=== PATIENT | female | born 1960 | race Caucasian/White ===

== ENCOUNTER 2024-05-10 04:45 | Inpatient (IN) | payer MEDICAID, OTHER ==
[~2024-05-10] VITALS: Ht 144.8 cm; Wt 89.9 kg
--- NOTE | 2024-05-10 05:42 | ED.PDOC ---
HPI Comments 63-year-old female came to emergency room via EMS due to chest pains. Patient has history of diabetes and breast cancer. Has been having intermittent episodes of chest pain since Monday, that worsened a few hours ago prompting her to go to [facility]. Diagnostics were done. Negative for troponin however was positive/ elevated for D Dimer levels. Patient transferred to this institution for further management. 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 Cardiac: (+) chest pain. No palpitations. Lungs: No shortness of breath, no cough. GI: No nausea, no vomiting, no diarrhea, no constipation, no abdominal pain : No dysuria, frequency, or urgency. No hematuria. Musculoskeletal: No joint pain , no joint swelling, no extremity edema. Skin: No rash, no itching. Neuro: No headache, no dizziness, no weakness Vital Signs Vital Signs Date Time Temp Pulse Resp B/P (MAP) Pulse Ox O2 Delivery O2 Flow Rate FiO2 05/10/24 05:42 61 05/10/24 04:57 98.2 18 144/87 (106) 98 Physical Exam General: Awake, alert and oriented. No acute distress. Skin: Skin in warm, dry and intact. Appropriate color for ethnicity. Nailbeds pink with no cyanosis. HEENT: The head is normocephalic and atraumatic. Conjunctivae are clear without exudates or hemorrhage. Sclera is non-icteric. EOM are intact. No signs of nystagmus. Eyelids are normal in appearance without swelling or lesions. Oral mucosa is pink and moist Neck: The neck is supple with normal range of motion. No JVD. Cardiac: Heart rate and rhythm are normal. No murmurs, gallops, or rubs are auscultated. Respiratory: No signs of respiratory distress. Lung sounds are clear in all lobes bilaterally without rales, ronchi, or wheezes. Abdominal: Abdomen is soft, non-tender without distention. Bowel sounds are present and normoactive in all four quadrants. Extremities: Upper and lower extremities are atraumatic in appearance without deformity or edema. Neurological: The patient is awake, alert and oriented to person, place, and time with normal speech. Speech is clear. There is no facial asymmetry. Psychiatric: Appropriate mood and affect. Good judgement and insight. No visual or auditory hallucinations. Past Medical History PAST MEDICAL HISTORY: Cancer (breast), DM Surgical History: , Hysterectomy MANAGER MEDIA History: Denies all MANAGER MEDIA Hx Family History Family History: Reviewed,noncontributory to illness Social History Smoker: Non-Smoker Alcohol: Denies ETOH Use Drugs: Denies Drug Use Lives In: Home EKG EKG : Pulse Rate (adult): 61 Cardiac Rhythm: NSR Was a procedure done? Was a procedure done?: No CP Differential Dx Differential Diagnosis: Angina, Anxiety / Panic Attack, Electrolyte Disorder, Hyperventilation, Pulmonary Embolus Differential Diagnosis: Angina, Chest Wall Pain, Costochondritis, Esophageal reflux/spasm, Gastritis, Myocardial Infarction X-Ray, Labs, Meds, VS Vital Signs Date Time Temp Pulse Resp B/P (MAP) Pulse Ox O2 Delivery O2 Flow Rate FiO2 05/10/24 05:42 61 05/10/24 04:57 98.2 58 18 144/87 (106) 98 05/10/24 04:46 61 Lab Test 05/10/24 05:31 Range/Units White Blood Count Pending Red Blood Count Pending Hemoglobin Pending Hematocrit Pending Mean Corpuscular Volume Pending Mean Corpuscular Hemoglobin Pending Mean Corpuscular Hemoglobin Concent Pending Red Cell Distribution Width Pending Platelet Count Pending Mean Platelet Volume Pending Neutrophils (%) (Auto) Pending Lymphocytes (%) (Auto) Pending Monocytes (%) (Auto) Pending Basophils (%) (Auto) Pending Neutrophils # (Auto) Pending Lymphocytes # (Auto) Pending Monocytes # (Auto) Pending Prothrombin Time Pending Prothrombin Time INR Pending Activated Partial Thromboplast Time Pending D-Dimer, Quantitative Pending Sodium Level Pending Potassium Level Pending Chloride Level Pending Carbon Dioxide Level Pending Anion Gap Pending Blood Urea Nitrogen Pending Creatinine Pending Glomerular Filtration Rate Calc Pending BUN/Creatinine Ratio Pending Serum Glucose Pending Calcium Level Pending Total Bilirubin Pending Aspartate Amino Transferase (AST) Pending Alanine Aminotransferase (ALT) Pending Alkaline Phosphatase Pending Troponin I High Sensitivity Pending B-Type Natriuretic Peptide Pending Total Protein Pending Albumin Pending Time of 1ST Reevaluation: 05:24 Reevaluation 1ST: Unchanged Patient Education/Counseling: Diagnosis, Treatment Family Education/Counseling: No Family Present Departure 1 Departure Time of Disposition: 05:52 Impression: Primary Impression: Chest pain Additional Impression: Elevated d-dimer Disposition: 09 ADMITTED INPATIENT Condition: Stable Comments 63-year-old female with history of breast cancer presents as a transfer from [place] with chest pain, elevated D-dimer. EKG and troponin negative for STEMI/NSTEMI. CT angiogram pending. Patient to be admitted for further treatment, evaluation and monitoring. Critical Care Note Critical Care Time?: Yes (35 min-critical care time only) Stability Stability form required: No Heart Score Heart Score: Heart Score Response (Comments) Value History Moderate Suspicious 1 EKG Normal 0 Age 45-64 1 Risk Factors 1 or 2 risk factors 1 Troponin Normal limit 0 Total 3 I personally scribed for NANCY ROTHMAN MD ([email or web address]) on 05/10/24 at 05:42. Meghana ctronically submitted by Mick Schwab ([facility]). NANCY ROTHMAN MD May 10, 2024 05:42
[2024-05-10 06:23] LABS: Alanine Aminotransferase 37 U/L (7-40); Albumin 4.5 g/dL (3.2-4.8); Alkaline Phosphatase 99 U/L (46-116); Anion Gap 7 (5-15); Aspartate Aminotransferase 28 U/L (13-40); BUN/Creatinine Ratio 14.8 (10.0-20.0); Blood Urea Nitrogen 12 mg/dL (9-23); Carbon Dioxide 26 mmol/L (20-31); Sodium 144 mmol/L (136-145); Total Protein 7.3 g/dL (5.7-8.2)
[2024-05-10 06:24] LABS: Bilirubin, Total 0.4 mg/dL (0.2-1.0); INR 1.03 (0.9-1.15); Partial Thromboplastin Time 23.7 SEC (24.5-34.5); Prothrombin Time 10.9 sec (9.3-11.8)
[2024-05-10 06:31] LABS: Chloride 111 mmol/L (98-107); Glucose 119 mg/dL (74-106)
--- NOTE | 2024-05-10 07:03 | ECG ---
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
--- NOTE | 2024-05-10 07:22 | ECG ---
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
--- NOTE | 2024-05-10 07:37 | DVHHP2 ---
History of Present Illness Reason for Visit: Chest pain History of Present Illness Steph Gardner is a 63-year-old female with past medical history of diabetes type 2, breast cancer, hysterectomy, , and right breast mass excision who presents to the ED with chest pain since Monday. Patient states that she was at work developed chest pain then went home to lie down. Patient states that the pain is currently 0/10 but at the time felt tight and was intermittent in nature. Patient states that she had a recent gum infection and was given antibiotics to take from hidradenitis in his still currently taking it plan for 10 days. Patient denies any shortness of breath, fever, chills, lightheadednes s, weakness, dizziness, recent trauma or injury, abdominal pain, nausea, vomiting, and diarrhea. Endocrine: Diabetes Past Medical History Breast cancer Past Surgical History: , Hysterectomy, Other (Right breast mass excision) Family History: Hypertension, Other (Mom with diabetes and hypertension and dad with diabetes) Smoke: No ALCOHOL: none Drugs: None Lives: Alone Domestic Violence: Neg Review of Systems Allergies: Coded Allergies: Mirabegron (Verified Allergy, Unknown, 05/10/24) Medications Current Medications Medications Dose Ordered Sig/Mona Route Start Time Stop Time Status Last Admin Dose Admin Aspirin 81 mg DAILY PO 05/10/24 10:00 UNV Atorvastatin Calcium 40 mg HS PO 05/10/24 22:00 UNV Morphine Sulfate 2 mg Q30MP PRN IV 05/10/24 07:45 UNV Acetaminophen 650 mg Q6HP PRN PO 05/10/24 07:45 UNV Nitroglycerin 0.4 mg Q5MINP PRN SL 05/10/24 07:45 UNV Ondansetron HCl 4 mg Q4HP PRN IV 05/10/24 07:45 UNV Nitroglycerin 0.4 mg Q5MINP PRN SL 05/10/24 07:45 UNV Morphine Sulfate 2 mg Q30M PRN IV 05/10/24 07:45 UNV Insulin Human Regular ACHS SC 05/10/24 11:30 UNV Dextrose 50 ml UD PRN IV 05/10/24 07:45 UNV Exam Vital Signs Vital Signs Date Time Temp Pulse Resp B/P (MAP) Pulse Ox O2 Delivery O2 Flow Rate FiO2 05/10/24 05:55 60 05/10/24 04:57 98.2 18 144/87 (790) 98 General Appearance: Alert, Oriented X3, Cooperative, No acute distress HEENT: Atraumatic, PERRLA, EOMI, Mucous membr. moist/pink Respiratory: Clear to auscultation, Normal air movement Cardiovascular: Normal S1, Normal S2, No murmurs Abdominal: Normal bowel sounds, Soft, No tenderness, No hepatospenomegaly, No masses Extremities: No clubbing, No cyanosis, No edema, Normal pulses, No tenderness/swelling Neuro: Normal speech, Normal tone, Sensation intact Psych/Mental Status: Mental status NL, Mood NL Labs/Xrays Labs Test 05/10/24 05:31 Range/Units Prothrombin Time 10.9 9.3-11.8 sec Prothrombin Time INR 1.03 0.9-1.15 Activated Partial Thromboplast Time 23.7 L 24.5-34.5 SEC D-Dimer, Quantitative 2.84 H 0.0-0.49 mg/L FEU Sodium Level 144 136-145 mmol/L Potassium Level 4.0 3.5-5.1 mmol/L Chloride Level 111 H 98-107 mmol/L Carbon Dioxide Level 26 20-31 mmol/L Anion Gap 7 5-15 Blood Urea Nitrogen 12 9-23 mg/dL Creatinine 0.81 0.550-1.02 mg/dL Glomerular Filtration Rate Calc 83 >90 mL/min BUN/Creatinine Ratio 14.8 10.0-20.0 Serum Glucose 119 H 74-106 mg/dL Calcium Level 10.0 8.7-10.4 mg/dL Total Bilirubin 0.4 0.2-1.0 mg/dL Aspartate Amino Transferase (AST) 28 13-40 U/L Alanine Aminotransferase (ALT) 37 7-40 U/L Alkaline Phosphatase 99 46-116 U/L Troponin I High Sensitivity 9 </=34 ng/L B-Type Natriuretic Peptide 39.94 0-100 pg/mL Total Protein 7.3 5.7-8.2 g/dL Albumin 4.5 3.2-4.8 g/dL CT CT ANGIO CHEST CONTRAST INDICATION: CP, elevated D-dimer, Hx Breast Ca EXAM DATE: 05/10/2024 07:18 AM COMPARISON: None RADIATION DOSE: CTDIvol: 25.41 mGy, DLP: 876.5 mGy*cm PROCEDURE: Helical CT angiographic images were obtained of the chest with intravenous contrast. Sagittal and coronal reconstructions as well as MIPS are provided. Maximum intensity projections performed (MIPs) were performed for CTA. ADDITIONAL IMAGES / REFORMATS: None All CT scans at this medical facility are performed using dose modulation techniques as appropriate to a performed exam including the following: Automated exposure control was utilized; adjustment of the MA and/or KV according to patient size; and use of iterative reconstruction technique. FINDINGS: Bones: Scattered degenerative changes are noted in the visualized osseous structures. Visualized Abdomen: Gallstones are seen in the gallbladder. Chest Wall: Normal. Soft tissues: Right breast skin thickening Mediastinum: Normal. Heart: Enlarged Vessels: No filling defects in the visualized pulmonary arteries including the segmental and subsegmental pulmonary arteries. Lymph Nodes: Normal. Pleura: Normal. Airways: Normal. Lung: Mild bibasilar atelectasis. Other: None IMPRESSION: No pulmonary embolism in the visualized pulmonary arteries including the seg mental and subsegmental pulmonary arteries. Mild bibasilar atelectasis. EXAM: XY CHEST XRAY 1 VIEW Indication: cp Technique: Single frontal view of the chest was obtained Comparison: None FINDINGS: Lines and Tubes: None Lungs: No focal consolidation. Pleura: No effusion. No pneumothorax. Cardiomediastinal contours: Unremarkable Bones: No acute osseous abnormality. IMPRESSION: No acute cardiopulmonary disease. Assessment/Plan Assessment/Plan Assessment Chest pain Elevated D-dimer rule out PE History of diabetes type 2 History of breast cancer History of hysterectomy History of History of right breast mass excision Plan Admit to tele CTA chest Troponin negative BNP PT/PTT EKG UA Chest x-ray ordered Hemoglobin A1c ISS and Accu-Cheks Mag level Echo ordered TSH Lipid panel UDS ACS protocol Antiemetics Pain management Home medications reconciled Diet Discussed plan of care with patient and nurse Plan discussed with: Patient My Orders Orders - DARRYL WALKER Procedure Category Date Status Time Admit ADMIT 05/10/24 Transmitted 07:32 Code Status CODE 05/10/24 Transmitted 07:32 Vital Signs EUGENIE 05/10/24 In Process 07:32 Gravel 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 EUGENIE 05/10/24 In Process 07:32 Cardiac DIET 05/10/24 Transmitted Diet-2gna,Lofat,Lochol Breakfast Aspirin Tablet PHA 05/10/24 Logged 10:00 Atorvastatin (Lipitor) PHA 05/10/24 Logged 22:00 Morphine Sulfate PHA 05/10/24 Logged Injection 07:45 Acetaminophen Tablet PHA 05/10/24 Logged (Tylenol Tablet) 07:45 Basic Metabolic Panel LAB 05/11/24 Verified 04:00 Comprehensive LAB 05/11/24 Verified Metabolic Panel 04:00 Magnesium LAB 05/11/24 Verified 04:00 Echo 2d Mode Cardiac US 05/10/24 Logged DOP 07:32 Nitroglycerin PHA 05/10/24 Logged Sublingual (Ntrostat 07:45 Ondansetron Hcl PHA 05/10/24 Logged (Zofran) 07:45 Electrocardigram EKG 05/11/24 Logged 04:00 Troponin-I Hs LAB 05/10/24 Transmitted 07:32 Cardiac EUGENIE 05/10/24 In Process Rehabilitation - Outpa Nitroglycerin PHA 05/10/24 Logged Sublingual (Ntrostat 07:45 Morphine Sulfate PHA 05/10/24 Logged Injection 07:45 Stat Ekg For Chest EUGENIE 05/10/24 In Process Pain 07:32 Notify Md Of Changes [facility] 05/10/24 In Process From Base 07:32 International Affairs Vice President For [facility] 05/10/24 In Process 24 Hours 07:32 Emergency Dysrhythmia [facility] 05/10/24 In Process Protocol 07:32 Rhythm Strips Once [facility] 05/10/24 In Process Every Shift 07:32 Oxygen By Nasal RT 05/10/24 Transmitted Cannula 07:32 Drug Screen LAB 05/10/24 Transmitted 07:32 Lipid Panel LAB 05/10/24 Transmitted 07:32 Glucose Blood PHA 05/10/24 Transmitted (Accu-Chek Comfort 11:30 Insulin R (Human) PHA 05/10/24 Logged (Insulin R) 11:30 Dextrose 50% Syringe PHA 05/10/24 Logged 07:45 Thyroid Stimulating LAB 05/10/24 Transmitted Hormone 07:32 Hemoglobin A1c LAB 05/10/24 Transmitted 07:35 Date of Service: May 10, 2024 Billing Provider: DARRYL WALKER Common Visit Codes: [id number] INP/OBS CARE (HIGH) DARRYL WALKER May 10, 2024 07:37
[2024-05-10 07:41] LABS: Basophils # (auto) 0 10 ^3/uL (0-0.2); Basophils % (auto) 0.6 % (0.0-2.0); Eosinophils # (auto) 0.1 10 ^3/uL (0-0.8); Eosinophils % (auto) 3.3 % (0.0-7.0); Hematocrit 38.5 % (36.0-46.0); Hemoglobin 12.6 g/dL (12.2-16.2); Lymphocytes # (auto) 1.2 10 ^3/uL (0.4-5.4); Lymphocytes % (auto) 29.5 % (10.0-50.0); Mean Corpuscular Hemoglobin 30.1 pg (28.0-32.0); Mean Corpuscular Hgb Conc. 32.7 g/dL (32.0-36.0); Monocytes # (auto) 0.5 10 ^3/uL (0-1.3); Monocytes % (auto) 11.5 % (0.0-12.0); Neutrophils # (auto) 2.3 10 ^3/uL (1.6-8.6); Neutrophils % (auto) 55.1 % (37.0-80.0); Nucleated Red Blood Cells % 0.2 %; Platelet Count (auto) 182 10^3/uL (140-450); Red Blood Cells 4.18 10^6/uL (4.0-5.20); Red Cell Distribution Width 14.2 % (11.8-14.3); White Blood Cell 4.1 10^3/uL (4.4-10.8)
[2024-05-10] MEDS ORDERED: DEXTROSE (50%) 50ML SYRG IV PRN (07:45)
[2024-05-10] MEDS ORDERED: ONDANSETRON HCL 4 MG/2 ML VIAL IV PRN (07:45)
[2024-05-10] MEDS ORDERED: MORPHINE SULFATE 4 MG/ML SYR/VIAL IV PRN (07:45)
[2024-05-10] MEDS ORDERED: NITROGLYCERIN 0.4 MG SL TAB SL PRN ×2 (07:45)
[2024-05-10] MEDS ORDERED: MORPHINE SULFATE INJ 2 MG/ml SYRG IV PRN (07:45)
[2024-05-10] MEDS: IOHEXOL 350 MG/ML 100ML IJ ONE (07:55)
--- NOTE | 2024-05-10 08:11 | DVH ---
EXAM: XY CHEST XRAY 1 VIEW Indication: cp Technique: Single frontal view of the chest was obtained Comparison: None FINDINGS: Lines and Tubes: None Lungs: No focal consolidation. Pleura: No effusion. No pneumothorax. Cardiomediastinal contours: Unremarkable Bones: No acute osseous abnormality. IMPRESSION: No acute cardiopulmonary disease.
[2024-05-10 08:12] LABS: Triglycerides 144 mg/dL (< 150)
[2024-05-10 08:13] LABS: LDL Cholesterol 85 mg/dL (< 100)
[2024-05-10 08:14] LABS: Cholesterol 130 mg/dL (< 200)
[2024-05-10 08:15] LABS: HDL Cholesterol 26 mg/dL (40-59)
--- NOTE | 2024-05-10 08:24 | DVH ---
CT CT ANGIO CHEST CONTRAST INDICATION: CP, elevated D-dimer, Hx Breast Ca EXAM DATE: 05/10/2024 07:18 AM COMPARISON: None RADIATION DOSE: CTDIvol: 25.41 mGy, DLP: 876.5 mGy*cm PROCEDURE: Helical CT angiographic images were obtained of the chest with intravenous contrast. Sagi ttal and coronal reconstructions as well as MIPS are provided. Maximum intensity projections performe d (MIPs) were performed for CTA. ADDITIONAL IMAGES / REFORMATS: None All CT scans at this medical facility are performed using dose modulation techniques as appropriate t o a performed exam including the following: Automated exposure control was utilized; adjustment of th e MA and/or KV according to patient size; and use of iterative reconstruction technique. FINDINGS: Bones: Scattered degenerative changes are noted in the visualized osseous structures. Visualized Abdomen: Gallstones are seen in the gallbladder. Chest Wall: Normal. Soft tissues: Right breast skin thickening Mediastinum: Normal. Heart: Enlarged Vessels: No filling defects in the visualized pulmonary arteries including the segmental and subsegme ntal pulmonary arteries. Lymph Nodes: Normal. Pleura: Normal. Airways: Normal. Lung: Mild bibasilar atelectasis. Other: None IMPRESSION: No pulmonary embolism in the visualized pulmonary arteries including the segmental and subsegmental p ulmonary arteries. Mild bibasilar atelectasis.
[2024-05-10] MEDS: ASPirin 81 mg TAB PO SCH (10:18)
[2024-05-10 11:22] VITALS: PULSE 84; RESP 20; O2SAT 96
[2024-05-10] MEDS: ACCU-CHEK COMFORT CURVE STRIP VI SCH (11:47)
[2024-05-10] MEDS: InsuLIN REG 1unit/0.01ml Soln (100units/ml) SC SCH (11:53)
[2024-05-10] MEDS ORDERED: ANAS1TAB7 PO (17:24)
[2024-05-10] MEDS ORDERED: FENO160T PO (17:24)
[2024-05-10] MEDS ORDERED: ATOR20TA50 PO (17:24)
[2024-05-10] MEDS ORDERED: AMOX500C2 PO (17:24)
[2024-05-10] MEDS ORDERED: MAGN241.6 PO (17:24)
[2024-05-10] MEDS ORDERED: OMEG-86 PO (17:24)
[2024-05-10 20:03] VITALS: RESP 15; O2SAT 95
[2024-05-10 21:00] VITALS: BP 123/85; PULSE 65; RESP 19; TEMP 97.4; O2SAT 97
[2024-05-10] MEDS: ATORVASTATIN 20 MG TAB PO SCH (22:16)
[2024-05-10 22:29] VITALS: BP 123/85; PULSE 65; RESP 19; TEMP 97.5; O2SAT 97
[2024-05-11] VITALS (8 sets, daily range): BP systolic 119–148; BP diastolic 58–74; PULSE 61–69; RESP 16–20; TEMP 97.6–98.3; O2SAT 96–99
[2024-05-11] LABS: Amphetamine Screen, Urine Neg (NEGATIVE); Barbiturate Scree,Urine Neg (NEGATIVE); Benzodiazephine Screen, Urine Neg (NEGATIVE); Cannabinoid Screen, Urine Neg (NEGATIVE); Cocaine Screen, Urine Neg (NEGATIVE); Opiate Scree,Urine Neg (NEGATIVE); Phencyclidine Screen, Urine Neg (NEGATIVE)
[2024-05-11 06:28] LABS: Alanine Aminotransferase 34 U/L (7-40); Albumin 4.1 g/dL (3.2-4.8); Alkaline Phosphatase 77 U/L (46-116); Anion Gap 6 (5-15); Aspartate Aminotransferase 24 U/L (13-40); BUN/Creatinine Ratio 19.8 (10.0-20.0); Bilirubin, Total 0.4 mg/dL (0.2-1.0); Blood Urea Nitrogen 16 mg/dL (9-23); Calcium 9.6 mg/dL (8.7-10.4); Carbon Dioxide 27 mmol/L (20-31); Sodium 142 mmol/L (136-145); Total Protein 6.6 g/dL (5.7-8.2)
[2024-05-11 06:31] LABS: Chloride 109 mmol/L (98-107); Glucose 133 mg/dL (74-106)
[2024-05-11] MEDS: IBUPROFEN 400 MG TAB PO PRN (12:02)
--- NOTE | 2024-05-11 12:33 | DVHSR ---
APPROVED REPORT EXAM: Two-dimensional and M-mode echocardiogram with Doppler and color Doppler. Blood Pressure: 145/70 mmHg INDICATION Chest Pain RISK FACTORS Height: 4'9", Weight: 195 DIMENSIONS LVDd3.9 (3.8-5.7cm)LA (2D)3.9 (1.9-4.0cm)Aortic Root3.4 (2.0-3.7cm) LVDs2.5 (2.5-4.0cm)LA (MM) (1.9-4.0cm)Aortic Cusp Exc1.4 (1.5-2.0cm) EF (%) 66.0 (55-70%)Rt. Atrium4.6 (1.9-4.0cm)Asc. Aorta cm IVSd1.4 (0.7-1.1cm)RV (D)4.1 (1.8-2.4cm) PWd1.4 (0.7-1.1cm) Mitral Valve MitralMitral Stenosis E wave0.94m/sMV Mean GR.mmHg A wave1.04m/sMV Peak GR.mmHg E/A ratio0.92D MVAcm2 DECEL [id number] 1/2 Timems Aortic Valve Aortic ValveAortic Stenosis V11.21m/Aleisha Mean GR.4mmHg V21.46m/Aleisha Peak GR.9mmHg LVOT Diameter1.8 (1.8-2.4cm)Doppler AVA2.11cm2 Pulmonic Valve V20.92m/s Tricuspid Valve TR Velocity2.19m/s [id number] Other Information Technically limited study due to body habitus. Conclusion lvef 60% by visual estimate normal rv function but enlarged left atrium enlarged no severe valve abnormalities noted normal pericardium
--- NOTE | 2024-05-11 13:38 | DVHPN2 ---
Reviewed: Care Plan, H&P, Labs, Medications, Previous Orders, Radiology Changes from previous H/P or p: No Changes Objective Vitals Vital Signs Date Time Temp Pulse Resp B/P (MAP) Pulse Ox O2 Delivery O2 Flow Rate FiO2 05/11/24 08:18 97.8 68 19 128/64 (85) 98 97.8 05/10/24 22:29 Room Air* 0 21 Intake/Output Intake and Output 05/11/24 07:00 Output Total 300 ml Balance -300 ml Output Urine Total 300 ml Medications Current Medications Medications Dose Ordered Sig/Mona Route Start Time Stop Time Status Last Admin Dose Admin Aspirin 81 mg DAILY PO 05/10/24 10:00 05/11/24 09:35 81 MG Atorvastatin Calcium 40 mg HS PO 05/10/24 22:00 05/10/24 22:16 40 MG Acetaminophen 650 mg Q6HP PRN PO 05/10/24 07:45 Ondansetron HCl 4 mg Q4HP PRN IV 05/10/24 07:45 Nitroglycerin 0.4 mg Q5MINP PRN SL 05/10/24 07:45 Morphine Sulfate 2 mg Q30M PRN IV 05/10/24 07:45 Diagnostic Test (Pha) 1 strip ACHS 05/10/24 11:30 05/11/24 11:30 1 STRIP Insulin Human Regular ACHS SC 05/10/24 11:30 05/11/24 05:26 2 UNITS Dextrose 50 ml UD PRN IV 05/10/24 07:45 Ibuprofen 400 mg Q8HP PRN PO 05/11/24 11:15 05/11/24 12:02 400 MG Laboratory Results Laboratory Tests 05/10/24 05:31 05/11/24 05:11 Chemistry Test 05/11/24 05:11 Albumin 4.1 g/dL (3.2-4.8) Calcium Level 9.6 mg/dL (8.7-10.4) Magnesium Level 2.0 mg/dL (1.6-2.6) Total Protein 6.6 g/dL (5.7-8.2) LFT Test 05/11/24 05:11 Alanine Aminotransferase (ALT) 34 U/L (7-40) Alkaline Phosphatase 77 U/L (46-116) Aspartate Amino Transferase (AST) 24 U/L (13-40) Total Bilirubin 0.4 mg/dL (0.2-1.0) Labs and/or images reviewed: Labs reviewed by me, Image(s) reviewed by me Assessment/Plan Assessment/Plan Chest pain rule out coronary artery disease: Troponin negative x3: Consult for sustainability manager Dr. Jose Elevated D-dimer 2.8, PE ruled out Diabetes type 2 History of breast cancer status post excision of the mass History of hysterectomy Time Spent 40 minutes Epigastric pain rule out GERD: Consult for Dr. Mckay Plan discussed with: Patient My Orders Orders - JOAQUIN RODRIGUEZ MD Procedure Category Date Status Time Ibuprofen Tablet PHA 05/11/24 In Process (Motrin Tablet) 11:15 * Cardiology Consult CONS 05/11/24 Verified 13:33 Date of Service: May 11, 2024 Billing Provider: JOAQUIN RODRIGUEZ MD Common Visit Codes: [id number] INP/OBS CARE(HIGH) JOAQUIN RODRIGUEZ MD May 11, 2024 13:38
--- NOTE | 2024-05-11 16:25 | DVHINCON2 ---
Date of service: May 11, 2024 Referring Physician Alen Salomon Reason for Consultation Rule out GERD History of Present Illness The patient is a 64-year-old female with history of hypertension, diabetes, history of breast cancer status post right breast excision, admitted with chest pain, GI consultation obtained for GERD. Patient states that the chest pain is in the mid chest and does not radiate. It is not related to eating. She states that the pain is made worse with exertion and associated with shortness of breath and occasional diaphoresis. She denies any history of dysphagia or prior history of EGD. Patient denies food impaction. She states that the pain comes with exertion and goes away with rest. Past Medical History As above Past Surgical History Breast cancer Cholecystectomy Hysterectomy Family History: Alzheimer's disease G8 MOTHER Cerebrovascular accident (CVA) G8 MOTHER Diabetes mellitus G8 MOTHER G8 FATHER Family History No gastrointestinal diseases or malignancies Social History No significant tobacco alcohol or recreational drug use Allergies: Coded Allergies: Mirabegron (Verified Allergy, Unknown, 05/10/24) Home Meds Reported Medications Fenofibrate (Fenofibrate) 160 Mg Tab, 1 TAB PO DAILY 05/10/24 Uwbdq-5-Sgfe Ethyl Esters (Tcupm-2-Pwxb Ethyl Esters) 1 Gm Cap, 1 CAP PO BID 05/10/24 Amoxicillin Trihydrate (Amoxicillin) 500 Mg Cap, 1 CAP PO BID day 7 05/10/24 Magnesium Oxide (mg Supplement (Magnesium-Oxide) 400 Mg Tab, 1 TAB PO DAILY 05/10/24 Atorvastatin Calcium (ATORVASTATIN CALCIUM) 20 Mg Tab, 1 TAB PO DAILY 05/10/24 Anastrozole (Anastrozole) 1 Mg Tab, 1 TAB PO DAILY 05/10/24 Current Medications Current Medications Medications (Trade) Dose Ordered Sig/Mona Route PRN Reason Start Time Stop Time Status Last Admin Atorvastatin Calcium (Lipitor) 40 mg HS PO 05/10/24 22:00 05/10/24 22:16 Ibuprofen (Motrin Tablet) 400 mg Q8HP PRN PO MODERATE PAIN (4-6 PAIN SCALE) 05/11/24 11:15 05/11/24 12:02 Review of Systems 12 point review of systems as per HPI Patient recently had hidradenitis for which he took antibiotic Vital Signs Vital Signs Date Time Temp Pulse Resp B/P (MAP) Pulse Ox O2 Delivery O2 Flow Rate FiO2 05/11/24 13:00 97.9 62 16 132/74 (93) 99 97.9 05/10/24 22:29 Room Air* 0 21 Physical Exam General: Alert and oriented x4 no distress HEENT: Normocephalic atraumatic, EOMI, PERRLA, O/P clear, no JVD Heart: Regular rate and rhythm Abdomen: Soft nontender nondistended normoactive bowel sounds Neuro: Moves all four extremities, cranial nerves grossly intact Extremity: No rashes or bruises or edema Labs/Diagnostic Data Labs Test 05/11/24 12:03 05/11/24 05:11 05/10/24 21:00 05/10/24 08:02 Range/Units POC Glucose 104 70-106 mg/dl Sodium Level 142 136-145 mmol/L Potassium Level 4.0 3.5-5.1 mmol/L Chloride Level 109 H 98-107 mmol/L Carbon Dioxide Level 27 20-31 mmol/L Anion Gap 6 5-15 Blood Urea Nitrogen 16 9-23 mg/dL Creatinine 0.81 0.550-1.02 mg/dL Glomerular Filtration Rate Calc 82 >90 mL/min BUN/Creatinine Ratio 19.8 10.0-20.0 Serum Glucose 133 H 74-106 mg/dL Calcium Level 9.6 8.7-10.4 mg/dL Magnesium Level 2.0 1.6-2.6 mg/dL Total Bilirubin 0.4 0.2-1.0 mg/dL Aspartate Amino Transferase (AST) 24 13-40 U/L Alanine Aminotransferase (ALT) 34 7-40 U/L Alkaline Phosphatase 77 46-116 U/L Total Protein 6.6 5.7-8.2 g/dL Albumin 4.1 3.2-4.8 g/dL Urine Opiates Screen Neg NEGATIVE Urine Fentanyl Screen Neg NEGATIVE Urine Barbiturates Screen Neg NEGATIVE Urine Phencyclidine Screen Neg NEGATIVE Urine Amphetamines Screen Neg NEGATIVE Urine Benzodiazepines Screen Neg NEGATIVE Urine Cocaine Screen Neg NEGATIVE Urine Cannabinoids Screen Neg NEGATIVE Troponin I High Sensitivity 9 </=34 ng/L Test 05/10/24 05:31 Range/Units White Blood Count 4.1 L 4.4-10.8 10^3/uL Red Blood Count 4.18 4.0-5.20 10^6/uL Hemoglobin 12.6 12.2-16.2 g/dL Hematocrit 38.5 36.0-46.0 % Mean Corpuscular Volume 92.0 80.0-100.0 fL Mean Corpuscular Hemoglobin 30.1 28.0-32.0 pg Mean Corpuscular Hemoglobin Concent 32.7 32.0-36.0 g/dL Red Cell Distribution Width 14.2 11.8-14.3 % Platelet Count 182 140-450 10^3/uL Mean Platelet Volume 11.7 H 6.9-10.8 fL Neutrophils (%) (Auto) 55.1 37.0-80.0 % Lymphocytes (%) (Auto) 29.5 10.0-50.0 % Monocytes (%) (Auto) 11.5 0.0-12.0 % Eosinophils (%) (Auto) 3.3 0.0-7.0 % Basophils (%) (Auto) 0.6 0.0-2.0 % Neutrophils # (Auto) 2.3 1.6-8.6 10 ^3/uL Lymphocytes # (Auto) 1.2 0.4-5.4 10 ^3/uL Monocytes # (Auto) 0.5 0-1.3 10 ^3/uL Eosinophils # (Auto) 0.1 0-0.8 10 ^3/uL Basophils # (Auto) 0 0-0.2 10 ^3/uL Nucleated Red Blood Cells 0.2 % Prothrombin Time 10.9 9.3-11.8 sec Prothrombin Time INR 1.03 0.9-1.15 Activated Partial Thromboplast Time 23.7 L 24.5-34.5 SEC D-Dimer, Quantitative 2.84 H 0.0-0.49 mg/L FEU Hemoglobin A1c 6.7 H <5.7 % A1C B-Type Natriuretic Peptide 39.94 0-100 pg/mL Triglycerides Level 144 < 150 mg/dL Cholesterol Level 130 < 200 mg/dL LDL Cholesterol 85 < 100 mg/dL HDL Cholesterol 26 L 40-59 mg/dL Thyroid Stimulating Hormone (TSH) 5.37 H 0.55-4.78 uIU/mL Assessment 1. Chest pain Symptoms atypical for GERD, consider noncardiac chest pain if cardiac workup is negative. She has left atrial enlargement and LVH on echo with an EF of 60%. Differentiated group diagnosis includes esophageal ulcer or esophageal spasm Problems(with codes): (1) Chest pain (2) Elevated d-dimer Plan/Recommendation 1. Continue with cardiac workup 2. Start proton pump inhibitor twice daily 3. Avoid spicy food 4. Caution with aspirin, NSAIDs 5. Consider EGD if cardiac workup is negative Plan discussed with: Patient CARMEN CHAMBERLAIN MD May 11, 2024 16:25
[2024-05-11] MEDS ORDERED: PANTOPRAZOLE 40 MG TAB PO PRN (16:30)
[2024-05-12] VITALS (8 sets, daily range): BP systolic 113–188; BP diastolic 47–81; PULSE 60–80; RESP 16–18; TEMP 97.6–98.4; O2SAT 96–98
--- NOTE | 2024-05-12 08:40 | DVHINCON2 ---
TEQUILA DENTON [facility] 05/12/24 0840: Date Seen: May 12, 2024 Referring Physician MD Aime Reason for Consultation Chest pain History of Present Illness This is a 64-year-old female patient who presents to emergency room with chief complaint of chest pain. The patient reports that the chest pain has been intermittently coming on for approximately one month but became so intense on the day of admission which is why she decided to come to the emergency room. She describes the chest pain as provoked by exertion, intermittent, tight in n ature, midsternal with radiation to right inframammary area. Associated symptoms include shortness of breath. Alleviating factors include rest. Initial twelve lead electrocardiogram reveals normal sinus rhythm with nonspecific ST segment changes to lateral leads. Troponin levels have been negative. Significant past medical history includes hypertension, dyslipidemia, type 2 diabetes mellitus, breast cancer status post chemotherapy and radiation, and obesity. The patient reports she has been in remission from breast cancer since April 2023. Past Medical History Past medical history reviewed. No other significant than mentioned above. Past Surgical History Right breast lumpectomy, x2, hysterectomy Family History: Alzheimer's disease G8 MOTHER Cerebrovascular accident (CVA) G8 MOTHER Diabetes mellitus G8 MOTHER G8 FATHER Family History Family history reviewed. Social History Denies the use of tobacco, alcohol or illicit drugs. Allergies: Coded Allergies: Mirabegron (Verified Allergy, Unknown, 05/10/24) Home Meds Reported Medications Fenofibrate (Fenofibrate) 160 Mg Tab, 1 TAB PO DAILY 05/10/24 Ovaqo-4-Uqvv Ethyl Esters (Mkxnb-5-Wfzz Ethyl Esters) 1 Gm Cap, 1 CAP PO BID 05/10/24 Amoxicillin Trihydrate (Amoxicillin) 500 Mg Cap, 1 CAP PO BID day 7 05/10/24 Magnesium Oxide (mg Supplement (Magnesium-Oxide) 400 Mg Tab, 1 TAB PO DAILY 05/10/24 Atorvastatin Calcium (ATORVASTATIN CALCIUM) 20 Mg Tab, 1 TAB PO DAILY 05/10/24 Anastrozole (Anastrozole) 1 Mg Tab, 1 TAB PO DAILY 05/10/24 Home Meds Home medications reviewed. Current Medications Current Medications Medications (Trade) Dose Ordered Sig/Mona Route PRN Reason Start Time Stop Time Status Last Admin Ibuprofen (Motrin Tablet) 400 mg Q8HP PRN PO MODERATE PAIN (4-6 PAIN SCALE) 05/11/24 11:15 05/11/24 12:02 Pantoprazole Sodium (Protonix Tablet) 40 mg BID@0600,1700 PRN PO gerd 05/11/24 16:30 Patient Own Medication 1 HS PO 05/12/24 22:00 Review of Systems Constitutional: No symptom reported Ears, Nose, & Throat: No symptom reported Eyes: No symptom reported Neurological: No symptoms reported Pulmonary/Respiratory: No symptoms reported Cardiovascular: Chest pain Gastrointestinal: No symptom reported Genitourinary: No symptom reported Musculoskeletal: No symptom reported Skin: No symptom reported Psychiatric: No symptom reported Endocrine: No symptom reported Hematologic/Lymphatic: No symptom reported Vital Signs Vital Signs Date Time Temp Pulse Resp B/P (MAP) Pulse Ox O2 Delivery O2 Flow Rate FiO2 05/12/24 05:00 97.8 80 18 118/58 (78) 96 97.8 05/11/24 20:00 Room Air* 0 21 Physical Exam General Appearance: Cooperative. Obese Pulmonary/Respiratory: Clear, bilateral breaths sounds. Cardiovascular/Chest: Regular rate and rhythm. Peripheral Pulses: 2+ Radial (R). 2+ Radial (L). 2+ Pedal (R). 2+ Pedal (L) Abdominal Exam: Normal bowel sounds. Ankle Exam: Negative ankle edema Lower extremities: Negative lower extremity edema Neuro/Mental Status: A/OX4, coherent. Thoughts/Psych: Normal thought pattern. Appropriate mood and affect. Good judgment and insight. Appearance: No acute distress. Skin Exam: Normal inspection. Normal color. Warm and dry. Labs/Diagnostic Data Labs Test 05/12/24 05:51 05/11/24 05:11 05/10/24 21:00 05/10/24 08:02 Range/Units POC Glucose 134 H 70-106 mg/dl Sodium Level 142 136-145 mmol/L Potassium Level 4.0 3.5-5.1 mmol/L Chloride Level 109 H 98-107 mmol/L Carbon Dioxide Level 27 20-31 mmol/L Anion Gap 6 5-15 Blood Urea Nitrogen 16 9-23 mg/dL Creatinine 0.81 0.550-1.02 mg/dL Glomerular Filtration Rate Calc 82 >90 mL/min BUN/Creatinine Ratio 19.8 10.0-20.0 Serum Glucose 133 H 74-106 mg/dL Calcium Level 9.6 8.7-10.4 mg/dL Magnesium Level 2.0 1.6-2.6 mg/dL Total Bilirubin 0.4 0.2-1.0 mg/dL Aspartate Amino Transferase (AST) 24 13-40 U/L Alanine Aminotransferase (ALT) 34 7-40 U/L Alkaline Phosphatase 77 46-116 U/L Total Protein 6.6 5.7-8.2 g/dL Albumin 4.1 3.2-4.8 g/dL Urine Opiates Screen Neg NEGATIVE Urine Fentanyl Screen Neg NEGATIVE Urine Barbiturates Screen Neg NEGATIVE Urine Phencyclidine Screen Neg NEGATIVE Urine Amphetamines Screen Neg NEGATIVE Urine Benzodiazepines Screen Neg NEGATIVE Urine Cocaine Screen Neg NEGATIVE Urine Cannabinoids Screen Neg NEGATIVE Troponin I High Sensitivity 9 </=34 ng/L Test 05/10/24 05:31 Range/Units White Blood Count 4.1 L 4.4-10.8 10^3/uL Red Blood Count 4.18 4.0-5.20 10^6/uL Hemoglobin 12.6 12.2-16.2 g/dL Hematocrit 38.5 36.0-46.0 % Mean Corpuscular Volume 92.0 80.0-100.0 fL Mean Corpuscular Hemoglobin 30.1 28.0-32.0 pg Mean Corpuscular Hemoglobin Concent 32.7 32.0-36.0 g/dL Red Cell Distribution Width 14.2 11.8-14.3 % Platelet Count 182 140-450 10^3/uL Mean Platelet Volume 11.7 H 6.9-10.8 fL Neutrophils (%) (Auto) 55.1 37.0-80.0 % Lymphocytes (%) (Auto) 29.5 10.0-50.0 % Monocytes (%) (Auto) 11.5 0.0-12.0 % Eosinophils (%) (Auto) 3.3 0.0-7.0 % Basophils (%) (Auto) 0.6 0.0-2.0 % Neutrophils # (Auto) 2.3 1.6-8.6 10 ^3/uL Lymphocytes # (Auto) 1.2 0.4-5.4 10 ^3/uL Monocytes # (Auto) 0.5 0-1.3 10 ^3/uL Eosinophils # (Auto) 0.1 0-0.8 10 ^3/uL Basophils # (Auto) 0 0-0.2 10 ^3/uL Nucleated Red Blood Cells 0.2 % Prothrombin Time 10.9 9.3-11.8 sec Prothrombin Time INR 1.03 0.9-1.15 Activated Partial Thromboplast Time 23.7 L 24.5-34.5 SEC D-Dimer, Quantitative 2.84 H 0.0-0.49 mg/L FEU Hemoglobin A1c 6.7 H <5.7 % A1C B-Type Natriuretic Peptide 39.94 0-100 pg/mL Triglycerides Level 144 < 150 mg/dL Cholesterol Level 130 < 200 mg/dL LDL Cholesterol 85 < 100 mg/dL HDL Cholesterol 26 L 40-59 mg/dL Thyroid Stimulating Hormone (TSH) 5.37 H 0.55-4.78 uIU/mL Assessment Chest pain, rule out coronary ischemia Hypertension Dyslipidemia Type 2 diabetes mellitus History of breast cancer Obesity Plan/Recommendation We will continue with the following plan/recommendations (Dr. Alvarado): * Transthoracic echocardiogram reveals EF 60% * Chest pain protocol * HEART score: 4 points (moderate) * Blood pressure control and lipid-lowering agent * Continuous cardiac surveillance * Nuclear stress test Patient seen and examined at bedside with . Given the patient's clinical presentation, twelve lead electrocardiogram findings, and comorbidities, we offered the patient a nuclear stress test. Plan discussed with the patient full detail. Patient is agreeable to undergo stress test. We will schedule the patient first availability on 05/13/2024. Thank you for allowing us to care for this patient. Please call with any questions or concerns. Critical care time spent: 44 minutes This medical document was created using an electronic medical record system with voice recognition software and computerized dictation system. Although this document has been carefully reviewed, there might still be some phonetic and typographical errors. Occasional wrong-word or ``sound-alike substitutions may have occurred due to the inherent limitations of voice recognition software. These areas are purely typographical due to imperfections of the software programs and do not reflect any compromise in the patient's medical care. Please read the chart carefully and recognize, using context, where these substitutions have occurred. Plan discussed with: Patient NYHA Physical activity limitations: NA Date of Service: May 12, 2024 Billing Provider: TEQUILA DENTON Cardiology Common Codes: [id number] INP/OBS CARE (High) Cardiology Consultation Codes: [id number] CONSULT <45MIN JENN ALVARADO MD 05/13/24 0830: Family History: Alzheimer's disease G8 MOTHER Cerebrovascular accident (CVA) G8 MOTHER Diabetes mellitus G8 MOTHER G8 FATHER Allergies: Coded Allergies: Mirabegron (Verified Allergy, Unknown, 05/10/24) Home Meds Reported Medications Fenofibrate (Fenofibrate) 160 Mg Tab, 1 TAB PO DAILY 05/10/24 Sklzu-6-Gedp Ethyl Esters (Busgz-7-Sdib Ethyl Esters) 1 Gm Cap, 1 CAP PO BID 05/10/24 Amoxicillin Trihydrate (Amoxicillin) 500 Mg Cap, 1 CAP PO BID day 05/10/24 Magnesium Oxide (mg Supplement (Magnesium-Oxide) 400 Mg Tab, 1 TAB PO DAILY 05/10/24 Atorvastatin Calcium (ATORVASTATIN CALCIUM) 20 Mg Tab, 1 TAB PO DAILY 05/10/24 Anastrozole (Anastrozole) 1 Mg Tab, 1 TAB PO DAILY 05/10/24 Plan/Recommendation pt seen with OCCUPATIONAL THERAPY PROGRAM DIRECTOR and agree with management plan formulated together stress mpi given risk factors pt agree to plan TEQUILA DENTON May 12, 2024 08:40 JENN ALVARADO MD May 13, 2024 08:30
--- NOTE | 2024-05-12 10:23 | DVHPN2 ---
Reviewed: Care Plan, H&P, Labs, Medications, Previous Orders, Radiology Changes from previous H/P or p: No Changes Objective Vitals Vital Signs Date Time Temp Pulse Resp B/P (MAP) Pulse Ox O2 Delivery O2 Flow Rate FiO2 05/12/24 08:30 98.4 75 16 188/81 (116) 97 98.4 05/11/24 20:00 Room Air* 0 21 Intake/Output Intake and Output 05/12/24 07:00 Intake Total 1550 ml Output Total 800 ml Balance 750 ml Intake Oral 1550 ml Output Urine Total 800 ml # Voids 4 # Bowel Movements 2 Medications Current Medications Medications Dose Ordered Sig/Mona Route Start Time Stop Time Status Last Admin Dose Admin Aspirin 81 mg DAILY PO 05/10/24 10:00 05/11/24 09:35 81 MG Atorvastatin Calcium 40 mg HS PO 05/10/24 22:00 05/11/24 21:48 40 MG Acetaminophen 650 mg Q6HP PRN PO 05/10/24 07:45 Ondansetron HCl 4 mg Q4HP PRN IV 05/10/24 07:45 Nitroglycerin 0.4 mg Q5MINP PRN SL 05/10/24 07:45 Morphine Sulfate 2 mg Q30M PRN IV 05/10/24 07:45 Diagnostic Test (Pha) 1 strip ACHS 05/10/24 11:30 05/12/24 06:10 1 STRIP Insulin Human Regular ACHS SC 05/10/24 11:30 05/12/24 06:10 2 UNITS Dextrose 50 ml UD PRN IV 05/10/24 07:45 Ibuprofen 400 mg Q8HP PRN PO 05/11/24 11:15 05/11/24 12:02 400 MG Pantoprazole Sodium 40 mg BID@0600,1700 PRN PO 05/11/24 16:30 Patient Own Medication 1 HS PO 05/12/24 22:00 Laboratory Results Laboratory Tests 05/10/24 05:31 05/11/24 05:11 Labs and/or images reviewed: Labs reviewed by me, Image(s) reviewed by me Assessment/Plan Assessment/Plan Acute Chest pain rule out coronary artery disease: Troponin negative x3: Consult for senior lead software engineer Dr. Jose appreciated, patient getting Cardiolite stress test Monday Elevated D-dimer 2.8, PE ruled out Diabetes type 2 History of breast cancer status post lumpectomy History of hysterectomy Epigastric pain rule out GERD: Consult for Dr. Woody le, pantoprazole 40 mg IV b.i.d. Plan discussed with: Patient My Orders Orders - JOAQUIN RODRIGUEZ MD Procedure Category Date Status Time Ibuprofen Tablet PHA 05/11/24 In Process (Motrin Tablet) 11:15 * Cardiology Consult CONS 05/11/24 Transmitted 13:33 * [facility] Control And Recovery Special Tactics CONS 05/11/24 Transmitted 13:39 Date of Service: May 12, 2024 Billing Provider: JOAQUIN RODRIGUEZ MD Common Visit Codes: [id number] INP/OBS CARE(HIGH) JOAQUIN RODRIGUEZ MD May 12, 2024 10:23
[2024-05-12] MEDS ORDERED: hydrALAZINE HCL 20 MG/ML VL IV PRN (11:00)
[2024-05-12] MEDS: METOPROLOL TARTRATE 50 MG TAB PO ONE (11:56)
--- NOTE | 2024-05-12 21:52 | DVHPN2 ---
Progress Note - Dictate Date Seen: May 12, 2024 Medical Necessity Reason Pt with a Central, PICC or Fol: No Subjective Patient seen at bedside sitting up in no acute distress Patient continues to complain of ongoing recurrent chest pain She denies any association with meals, she denies any heartburn GERD epigastric pain and dyspepsia She has been evaluated by Cardiology and is awaiting a nuclear stress test vital signs Vital Sign Date Time Temp Pulse Resp B/P (MAP) Pulse Ox O2 Delivery O2 Flow Rate FiO2 05/12/24 21:00 97.8 64 18 146/68 (94) 97 97.8 05/12/24 08:00 Room Air* 0 21 Total Intake and Output 05/11/24 05/11/24 05/12/24 15:00 23:00 07:00 Intake Total 600 ml 950 ml Output Total 800 ml Balance 600 ml 150 ml medications Current Medications Medications Dose Ordered Sig/Mona Route Start Time Stop Time Status Last Admin Dose Admin Aspirin 81 mg DAILY PO 05/10/24 10:00 05/12/24 10:29 81 MG Atorvastatin Calcium 40 mg HS PO 05/10/24 22:00 05/11/24 21:48 40 MG Acetaminophen 650 mg Q6HP PRN PO 05/10/24 07:45 Ondansetron HCl 4 mg Q4HP PRN IV 05/10/24 07:45 Nitroglycerin 0.4 mg Q5MINP PRN SL 05/10/24 07:45 Morphine Sulfate 2 mg Q30M PRN IV 05/10/24 07:45 Diagnostic Test (Pha) 1 strip ACHS 05/10/24 11:30 05/12/24 17:00 1 STRIP Insulin Human Regular ACHS SC 05/10/24 11:30 05/12/24 17:00 2 UNITS Dextrose 50 ml UD PRN IV 05/10/24 07:45 Ibuprofen 400 mg Q8HP PRN PO 05/11/24 11:15 05/12/24 10:29 400 MG Pantoprazole Sodium 40 mg BID@0600,1700 PRN PO 05/11/24 16:30 Patient Own Medication 1 HS PO 05/12/24 22:00 Metoprolol Tartrate 50 mg BID PO 05/12/24 22:00 Hydralazine HCl 10 mg Q6HP PRN IV 05/12/24 11:00 objective General: Alert and oriented x4 no distress HEENT: Normocephalic atraumatic, EOMI, PERRLA, O/P clear, no JVD Heart: Regular rate and rhythm Abdomen: Soft nontender nondistended normoactive bowel sounds Neuro: Moves all four extremities, cranial nerves grossly intact Extremity: No rashes or bruises or edema laboratory and microbiology Laboratory Tests 05/11/24 05:11 05/10/24 05:31 Test 05/11/24 05:11 Range/Units Serum Glucose 133 H 74-106 mg/dL Problems(with codes): (1) Elevated d-dimer (2) Chest pain Prognosis Plan Continue supportive care Continue cardiac workup and complete stress test Patient does not appear to have any upper GI symptoms However if other workup is negative consider elective EGD once medically stabilized I will order a gallbladder ultrasound also although her liver enzymes are normal at this time Plan discussed with: Patient KRISTYN SABILLON MD May 12, 2024 21:52
[2024-05-12] MEDS: ANASTROZOLE 1 MG TABLET PO SCH (22:00)
[2024-05-12] MEDS: METOPROLOL TARTRATE 50 MG TAB PO SCH (22:00)
[2024-05-13] VITALS (8 sets, daily range): BP systolic 130–163; BP diastolic 59–79; PULSE 61–95; RESP 16–18; TEMP 97.6–98.7; O2SAT 97–98
--- NOTE | 2024-05-13 07:24 | DVH ---
EXAM: US Abdomen Limited, Right Upper Quadrant CLINICAL INDICATION: atypical chest pain TECHNIQUE: Real-time ultrasound of the right upper quadrant with image documentation. COMPARISON: None FINDINGS: LIVER: Hepatopetal blood flow in main portal vein. Liver measures 15.5 cm. Fatty infiltration of the liver. No intrahepatic bile duct dilation. GALLBLADDER: Cholelithiasis. Nuclear Doshi's. COMMON BILE DUCT: Unremarkable as visualized. No stones. No dilation. Common bile duct measures 0.49 cm in diameter. PANCREAS: Unremarkable as visualized. RIGHT KIDNEY: Right kidney measures up to 9.6 cm. No stones. No hydronephrosis. OTHER FINDINGS: . . IMPRESSION: 1. Fatty infiltration of the liver. 2. Cholelithiasis. No convincing evidence of acute cholecystitis.
--- NOTE | 2024-05-13 09:59 | DVHPN2 ---
Reviewed: Care Plan, H&P, Labs, Medications, Previous Orders, Radiology Changes from previous H/P or p: No Changes Objective Vitals Vital Signs Date Time Temp Pulse Resp B/P (MAP) Pulse Ox O2 Delivery O2 Flow Rate FiO2 05/13/24 08:30 97.9 62 16 163/74 (103) 98 97.9 05/12/24 20:00 Room Air* 0 21 Intake/Output Intake and Output 05/13/24 07:00 Intake Total 0 ml Output Total 700 ml Balance -700 ml Intake Oral 0 ml Output Urine Total 700 ml # Voids 6 # Bowel Movements 5 Medications Current Medications Medications Dose Ordered Sig/Mona Route Start Time Stop Time Status Last Admin Dose Admin Aspirin 81 mg DAILY PO 05/10/24 10:00 05/12/24 10:29 81 MG Atorvastatin Calcium 40 mg HS PO 05/10/24 22:00 05/12/24 22:00 40 MG Acetaminophen 650 mg Q6HP PRN PO 05/10/24 07:45 Ondansetron HCl 4 mg Q4HP PRN IV 05/10/24 07:45 Nitroglycerin 0.4 mg Q5MINP PRN SL 05/10/24 07:45 Morphine Sulfate 2 mg Q30M PRN IV 05/10/24 07:45 Diagnostic Test (Pha) 1 strip ACHS 05/10/24 11:30 05/13/24 06:53 1 STRIP Insulin Human Regular ACHS SC 05/10/24 11:30 05/12/24 22:03 2 UNITS Dextrose 50 ml UD PRN IV 05/10/24 07:45 Ibuprofen 400 mg Q8HP PRN PO 05/11/24 11:15 05/12/24 10:29 400 MG Pantoprazole Sodium 40 mg BID@0600,1700 PRN PO 05/11/24 16:30 Patient Own Medication 1 HS PO 05/12/24 22:00 05/12/24 22:00 1 Metoprolol Tartrate 50 mg BID PO 05/12/24 22:00 Hydralazine HCl 10 mg Q6HP PRN IV 05/12/24 11:00 Laboratory Results Laboratory Tests 05/10/24 05:31 05/11/24 05:11 Labs and/or images reviewed: Labs reviewed by me, Image(s) reviewed by me Assessment/Plan Assessment/Plan Acute Chest pain rule out coronary artery disease: Troponin negative x3: Consult for quick sketch artist Dr. Jose appreciated, patient getting Cardiolite stress test today Elevated D-dimer 2.8, PE ruled out Diabetes type 2 History of breast cancer status post lumpectomy History of hysterectomy Epigastric pain rule out GERD: Consult for Dr. Mckay appreciated, pantoprazole 40 mg IV b.i.d. Gallbladder ultrasound shows gallstones no cholecystitis and fatty liver Plan discussed with: Patient My Orders Orders - JOAQUIN RODRIGUEZ MD Procedure Category Date Status Time Metoprolol Tartrate PHA 05/12/24 In Process Tablet (Lopressor Ta 22:00 Date of Service: May 13, 2024 Billing Provider: JOAQUIN RODRIGUEZ MD Common Visit Codes: [id number] INP/OBS CARE(HIGH) JOAQUIN RODRIGUEZ MD May 13, 2024 09:59
[2024-05-13] MEDS: REGADENOSON 0.4 MG/5 ML SYRG IV ONE ×2 (10:09)
--- NOTE | 2024-05-13 11:46 | DVHPN2 ---
Progress Note Date Seen: May 13, 2024 Resident Creating Document: ESTEBAN JEFFERS RESIDENT Medical Necessity Reason Pt with a Central, PICC or Fol: No Subjective Review of Systems Patient notes epigastric pain which is intermittent in nature, patient notes pain is worsened with activity and improved with sitting and lying down. Denies any changes in the character in onset of pain with eating. Denies any sour taste in mouth in the morning. Patient describes the pain as a stabbing type pain associated with palpitations and diaphoresis. No tenderness to palpation in the midepigastric area noted. Patient does note that she take ibuprofen 400 mg once daily since October. She has been evaluated by Cardiology and is awaiting a nuclear stress test Objective vital signs Vital Sign Date Time Temp Pulse Resp B/P (MAP) Pulse Ox O2 Delivery O2 Flow Rate FiO2 05/13/24 08:30 97.9 62 16 163/74 (103) 98 97.9 05/12/24 20:00 Room Air* 0 21 Total Intake and Output 05/12/24 05/12/24 05/13/24 15:00 23:00 07:00 Intake Total 0 ml Output Total 700 ml Balance -700 ml medications Current Medications Medications Dose Ordered Sig/Mona Route Start Time Stop Time Status Last Admin Dose Admin Aspirin 81 mg DAILY PO 05/10/24 10:00 05/12/24 10:29 81 MG Atorvastatin Calcium 40 mg HS PO 05/10/24 22:00 05/12/24 22:00 40 MG Acetaminophen 650 mg Q6HP PRN PO 05/10/24 07:45 Ondansetron HCl 4 mg Q4HP PRN IV 05/10/24 07:45 Nitroglycerin 0.4 mg Q5MINP PRN SL 05/10/24 07:45 Morphine Sulfate 2 mg Q30M PRN IV 05/10/24 07:45 Diagnostic Test (Pha) 1 strip ACHS 05/10/24 11:30 05/13/24 06:53 1 STRIP Insulin Human Regular ACHS SC 05/10/24 11:30 05/12/24 22:03 2 UNITS Dextrose 50 ml UD PRN IV 05/10/24 07:45 Ibuprofen 400 mg Q8HP PRN PO 05/11/24 11:15 05/12/24 10:29 400 MG Pantoprazole Sodium 40 mg BID@0600,1700 PRN PO 05/11/24 16:30 Patient Own Medication 1 HS PO 05/12/24 22:00 05/12/24 22:00 1 Metoprolol Tartrate 50 mg BID PO 05/12/24 22:00 Hydralazine HCl 10 mg Q6HP PRN IV 05/12/24 11:00 Examination General Appearance: Cooperative. Well developed. Well nourished. NAD Head Exam: Normal inspection Neck Exam: Normal inspection. Non-tender. Normal alignment Pulmonary/Respiratory: Chest non-tender. Clear bilateral breath sounds Cardiovascular/Chest: Regular rate and rhythm. No murmurs. No JVD. Peripheral Pulses: 2+ Radial (R). 2+ Radial (L). 2+ Pedal (R). 2+ Pedal (L) Abdominal Exam: Normal bowel sounds. Soft. Nontender. No hepatospenomegaly. No masses Ankle Exam: Negative ankle edema Lower extremities: Negative lower extremity edema Neuro/Mental Status: A&O x4. Coherent Thoughts/Psych: Normal thought pattern. Appropriate mood and affect. Good judgement and insight Appearance: In no acute distress Skin Exam: Normal inspection. Normal color. Warm. Dry laboratory and microbiology Laboratory Tests 05/11/24 05:11 05/10/24 05:31 Test 05/11/24 05:11 Range/Units Serum Glucose 133 H 74-106 mg/dL Labs and/or images reviewed: Labs reviewed by me, Image(s) reviewed by me Problem List/Assessment/Plan Problem List/Assessment/Plan Midepigastric pain Elevated D-dimer Plan Continue Protonix 40 mg b.i.d. Continue supportive care Completed stress test today, awaiting results Patient does not appear to have any upper GI symptoms However if other workup is negative consider elective EGD once medically stabilized Gallbladder ultrasound: Fatty infiltration of the liver. Cholelithiasis. No convincing evidence of acute cholecystitis. Plan discussed with: Patient, Other (RN) ESTEBAN JEFFERS RESIDENT May 13, 2024 11:46
--- NOTE | 2024-05-13 15:03 | DVHSR ---
APPROVED REPORT Exam: Nuclear Stress Test BMI: 0 Stress Test Details HR Max Heart Rate (APMHR): 158.135853 bpm Target HR (85% APMHR): 134.492628 bpm BP ECG Stress ECG Conclusion baseline ecg shows SR and non specific st t wave depressions also seen with stress portion lvef 72% no severe ischemia noted image artifact noted on anterior wall breast artifact clinical correlate NM EXAM: Myocardial Perfusion REST/STRESS Imaging Protocol: Rest Tc-99m/Stress Tc-99m 1 day Resting Data Rest SPECT myocardial perfusion imaging was performed in supine position 60 minutes following the int ravenous injection of 15 mCi of Tc-99m Sestamibi. Time of rest injection: 821 Time of rest imagin Administration Route: IV Administration Site: Left Arm Pharmacologic Stress Pharmacologic stress test was performed by injecting Regadenoson 0.4 mg IV push followed by the intra venous injection of 31 mCi of Tc-99m Sestamibi. Time of stress injection: 1009 Time of stress imagin Administration Route: IV Administration Site: Left Arm Gated Stress SPECT was performed 60 minutes after stress injection. The images were gated to evaluate regional wall motion and calculate left ventricular ejection fracti on. Stress only was performed in the Supine position. Nuclear Conclusion baseline ecg shows SR and non specific st t wave depressions also seen with stress portion lvef 72% no severe ischemia noted image artifact noted on anterior wall breast artifact clinical correlate
--- NOTE | 2024-05-13 15:43 | DVHPN2 ---
Progress Note Date Seen: May 13, 2024 Medical Necessity Reason Pt with a Central, PICC or Fol: No Subjective Patient reports: Feels better Objective vital signs Vital Sign Date Time Temp Pulse Resp B/P (MAP) Pulse Ox O2 Delivery O2 Flow Rate FiO2 05/13/24 14:01 95 147/79 05/13/24 13:10 98.7 16 97 98.7 05/13/24 08:00 Room Air* 0 21 Total Intake and Output 05/12/24 05/12/24 05/13/24 15:00 23:00 07:00 Intake Total 0 ml Output Total 700 ml Balance -700 ml medications Current Medications Medications Dose Ordered Sig/Mona Route Start Time Stop Time Status Last Admin Dose Admin Aspirin 81 mg DAILY PO 05/10/24 10:00 05/13/24 14:01 81 MG Atorvastatin Calcium 40 mg HS PO 05/10/24 22:00 05/12/24 22:00 40 MG Acetaminophen 650 mg Q6HP PRN PO 05/10/24 07:45 Ondansetron HCl 4 mg Q4HP PRN IV 05/10/24 07:45 Nitroglycerin 0.4 mg Q5MINP PRN SL 05/10/24 07:45 Morphine Sulfate 2 mg Q30M PRN IV 05/10/24 07:45 Diagnostic Test (Pha) 1 strip ACHS 05/10/24 11:30 05/13/24 11:30 1 STRIP Insulin Human Regular ACHS SC 05/10/24 11:30 05/12/24 22:03 2 UNITS Dextrose 50 ml UD PRN IV 05/10/24 07:45 Ibuprofen 400 mg Q8HP PRN PO 05/11/24 11:15 05/12/24 10:29 400 MG Pantoprazole Sodium 40 mg BID@0600,1700 PRN PO 05/11/24 16:30 Patient Own Medication 1 HS PO 05/12/24 22:00 05/12/24 22:00 1 Metoprolol Tartrate 50 mg BID PO 05/12/24 22:00 05/13/24 14:01 50 MG Hydralazine HCl 10 mg Q6HP PRN IV 05/12/24 11:00 Examination: GENERAL:Abnormal, HEENT:Abnormal, LUNGS:Abnormal, CVS:Abnormal, ABDOMEN:Abnormal laboratory and microbiology Laboratory Tests 05/11/24 05:11 05/10/24 05:31 Test 05/11/24 05:11 Range/Units Serum Glucose 133 H 74-106 mg/dL Problem List/Assessment/Plan Problem List/Assessment/Plan chest pain obesity HTN HL stress mpi shows no major ischemia cv cleared for dc home Plan discussed with: Patient Date of Service: May 13, 2024 Billing Provider: JENN ALVARADO MD Common Visit Codes: NOT BILLABLE JENN ALVARADO MD May 13, 2024 15:43
[2024-05-14 01:00] VITALS: BP_SYST 132; BP_SYST 139; BP_DIAS 69; BP_DIAS 82; PULSE 57; PULSE 59; RESP 16; TEMP 97.6; TEMP 97.8; O2SAT 98; O2SAT 99
[2024-05-14 05:00] VITALS: BP 132/82; PULSE 59; RESP 16; TEMP 97.6; O2SAT 98
[2024-05-14 08:00] VITALS: PULSE 65; RESP 16; O2SAT 98
[2024-05-14 09:00] VITALS: BP 178/105; PULSE 69; RESP 20; TEMP 98; O2SAT 99
[2024-05-14] MEDS: ACETAMINOPHEN 325 MG TAB PO PRN (09:33)
[2024-05-14] MEDS ORDERED: METO-158 PO (10:11)
[2024-05-14] MEDS ORDERED: ASPI1TAB20 PO (10:11)
--- NOTE | 2024-05-14 10:13 | DVHPN2 ---
Reviewed: Care Plan, H&P, Labs, Medications, Previous Orders, Radiology Changes from previous H/P or p: No Changes Objective Vitals Vital Signs Date Time Temp Pulse Resp B/P (MAP) Pulse Ox O2 Delivery O2 Flow Rate FiO2 05/14/24 09:34 62 132/82 05/14/24 05:00 97.6 16 98 97.6 05/13/24 20:00 Room Air* 0 21 Intake/Output Intake and Output 05/14/24 07:00 Intake Total 600 ml Balance 600 ml Intake Oral 600 ml # Voids 12 # Bowel Movements 4 Medications Current Medications Medications Dose Ordered Sig/Mona Route Start Time Stop Time Status Last Admin Dose Admin Aspirin 81 mg DAILY PO 05/10/24 10:00 05/14/24 09:33 81 MG Atorvastatin Calcium 40 mg HS PO 05/10/24 22:00 05/13/24 22:21 40 MG Acetaminophen 650 mg Q6HP PRN PO 05/10/24 07:45 05/14/24 09:33 650 MG Ondansetron HCl 4 mg Q4HP PRN IV 05/10/24 07:45 Nitroglycerin 0.4 mg Q5MINP PRN SL 05/10/24 07:45 Morphine Sulfate 2 mg Q30M PRN IV 05/10/24 07:45 Diagnostic Test (Pha) 1 strip ACHS 05/10/24 11:30 05/14/24 06:40 1 STRIP Insulin Human Regular ACHS SC 05/10/24 11:30 05/13/24 22:21 4 UNITS Dextrose 50 ml UD PRN IV 05/10/24 07:45 Ibuprofen 400 mg Q8HP PRN PO 05/11/24 11:15 05/13/24 20:07 400 MG Pantoprazole Sodium 40 mg BID@0600,1700 PRN PO 05/11/24 16:30 Patient Own Medication 1 HS PO 05/12/24 22:00 05/13/24 22:26 1 Metoprolol Tartrate 50 mg BID PO 05/12/24 22:00 05/14/24 09:34 50 MG Hydralazine HCl 10 mg Q6HP PRN IV 05/12/24 11:00 Laboratory Results Laboratory Tests 05/10/24 05:31 05/11/24 05:11 Labs and/or images reviewed: Labs reviewed by me, Image(s) reviewed by me Assessment/Plan Assessment/Plan Acute Chest pain rule out coronary artery disease: Troponin negative x3: Consult for business operations analyst Dr. Jose appreciated, Cardiolite stress test negative cleared for discharge by Cardiology Elevated D-dimer 2.8, PE ruled out Diabetes type 2 History of breast cancer status post lumpectomy History of hysterectomy Epigastric pain rule out GERD: Consult for Dr. Mckay appreciated, pantoprazole 40 mg IV b.i.d. Gallbladder ultrasound shows gallstones no cholecystitis and fatty liver Plan discussed with: Patient My Orders Orders - JOAQUIN RODRIGUEZ MD Procedure Category Date Status Time Cardiac DIET 05/13/24 Transmitted Diet-2gna,Lofat,Lochol Lunch Date of Service: May 14, 2024 Billing Provider: JOAQUIN RODRIGUEZ MD Common Visit Codes: [id number] INP/OBS CARE(HIGH) JOAQUIN RODRIGUEZ MD May 14, 2024 10:13
[2024-05-14] MEDS ORDERED: PANT40T PO (10:14)
--- NOTE | 2024-05-14 10:17 | DVHDS2 ---
Discharge Summary Date of Admission May 10, 2024 at 07:32 Date of Discharge: May 14, 2024 Admitting Diagnosis Chest pain Wounds: None Labs/Diagnostic Data: Laboratory Results Test 05/14/24 06:12 05/11/24 05:11 05/10/24 21:00 05/10/24 08:02 POC Glucose 108 mg/dl (70-106) Sodium Level 142 mmol/L (136-145) Potassium Level 4.0 mmol/L (3.5-5.1) Chloride Level 109 mmol/L (98-107) Carbon Dioxide Level 27 mmol/L (20-31) Anion Gap 6 (5-15) Blood Urea Nitrogen 16 mg/dL (9-23) Creatinine 0.81 mg/dL (0.550-1.02) Glomerular Filtration Rate Calc 82 mL/min (>90) BUN/Creatinine Ratio 19.8 (10.0-20.0) Serum Glucose 133 mg/dL (74-106) Calcium Level 9.6 mg/dL (8.7-10.4) Magnesium Level 2.0 mg/dL (1.6-2.6) Total Bilirubin 0.4 mg/dL (0.2-1.0) Aspartate Amino Transferase (AST) 24 U/L (13-40) Alanine Aminotransferase (ALT) 34 U/L (7-40) Alkaline Phosphatase 77 U/L (46-116) Total Protein 6.6 g/dL (5.7-8.2) Albumin 4.1 g/dL (3.2-4.8) Urine Opiates Screen Neg (NEGATIVE) Urine Fentanyl Screen Neg (NEGATIVE) Urine Barbiturates Screen Neg (NEGATIVE) Urine Phencyclidine Screen Neg (NEGATIVE) Urine Amphetamines Screen Neg (NEGATIVE) Urine Benzodiazepines Screen Neg (NEGATIVE) Urine Cocaine Screen Neg (NEGATIVE) Urine Cannabinoids Screen Neg (NEGATIVE) Troponin I High Sensitivity 9 ng/L (</=34) Test 05/10/24 05:31 White Blood Count 4.1 10^3/uL (4.4-10.8) Red Blood Count 4.18 10^6/uL (4.0-5.20) Hemoglobin 12.6 g/dL (12.2-16.2) Hematocrit 38.5 % (36.0-46.0) Mean Corpuscular Volume 92.0 fL (80.0-100.0) Mean Corpuscular Hemoglobin 30.1 pg (28.0-32.0) Mean Corpuscular Hemoglobin Concent 32.7 g/dL (32.0-36.0) Red Cell Distribution Width 14.2 % (11.8-14.3) Platelet Count 182 10^3/uL (140-450) Mean Platelet Volume 11.7 fL (6.9-10.8) Neutrophils (%) (Auto) 55.1 % (37.0-80.0) Lymphocytes (%) (Auto) 29.5 % (10.0-50.0) Monocytes (%) (Auto) 11.5 % (0.0-12.0) Eosinophils (%) (Auto) 3.3 % (0.0-7.0) Basophils (%) (Auto) 0.6 % (0.0-2.0) Neutrophils # (Auto) 2.3 10 ^3/uL (1.6-8.6) Lymphocytes # (Auto) 1.2 10 ^3/uL (0.4-5.4) Monocytes # (Auto) 0.5 10 ^3/uL (0-1.3) Eosinophils # (Auto) 0.1 10 ^3/uL (0-0.8) Basophils # (Auto) 0 10 ^3/uL (0-0.2) Nucleated Red Blood Cells 0.2 % Prothrombin Time 10.9 sec (9.3-11.8) Prothrombin Time INR 1.03 (0.9-1.15) Activated Partial Thromboplast Time 23.7 SEC (24.5-34.5) D-Dimer, Quantitative 2.84 mg/L FEU (0.0-0.49) Hemoglobin A1c 6.7 % A1C (<5.7) B-Type Natriuretic Peptide 39.94 pg/mL (0-100) Triglycerides Level 144 mg/dL (< 150) Cholesterol Level 130 mg/dL (< 200) LDL Cholesterol 85 mg/dL (< 100) HDL Cholesterol 26 mg/dL (40-59) Thyroid Stimulating Hormone (TSH) 5.37 uIU/mL (0.55-4.78) Other Laboratory Tests 05/11/24 05:11 05/10/24 05:31 Brief Hx & Hospital Course: 64-year-old female with a history of diabetes history of breast cancer status post lumpectomy history of hysterectomy came in complaining of epigastric pain and chest pain troponin negative x3 seen by Cardiology Dr. Jose Cardiolite stress test was negative cleared for discharge elevated D-dimer 2.8 PE ruled out seen by Dr. Figueroa him for the epigastric pain placed on pantoprazole. Gallbladder ultrasound showed gallstones but no cholecystitis and also fatty liver. The patient is asymptomatic at the time of discharge. Reviewed the home medications. Prescription for aspirin metoprolol and pantoprazole transmitted to the pharmacy Consults/Reason for consult Cardiology Dr. Jose Operations or Procedures Cardiolite stress test Condition at Discharge: Fair Final Diagnosis/Problems List Noncardiac chest pain Troponin negative x3: Consult for hatchery attendant Dr. Rebeca le, Cardiolite stress test negative cleared for discharge by Cardiology Elevated D-dimer 2.8, PE ruled out Diabetes type 2 History of breast cancer status post lumpectomy History of hysterectomy Epigastric pain rule out GERD: Consult for Dr. Woody le, pantoprazole 40 mg IV b.i.d. Gallbladder ultrasound shows gallstones no cholecystitis and fatty liver Discharge Disposition: Home Discharge Instruct/Medications Diet: Cardiac 2g Na,low cholest Activity: Light activity Follow Up/Referral: Follow up with the primary Dr Dr. Munguia Medications: Pantoprazole Aspirin Metoprolol Transmitted to pharmacy 35 (Time taken for discharge summary 35 minutes) Discharge Statement: "Patient was advised to return to the ER or call 911 if any headaches, dizziness, shortness of breath, chest pain, abdominal pain, bleeding, fevers, or worsening of medical condition. Patient was counseled about treatment plan, medications, possible side effects, patientverbalized understanding. All questions were answered to the best of my ability. This discharge took greater then 30 minutes in planning, reviewing documentation, counseling the patient, and discussing with other team members." ASSESSMENT ASSESSMENT Hospital Course Improved Assessment Noncardiac chest pain Troponin negative x3: Consult for hatchery attendant Dr. Rebeca le, Cardiolite stress test negative cleared for discharge by Cardiology Elevated D-dimer 2.8, PE ruled out Diabetes type 2 History of breast cancer status post lumpectomy History of hysterectomy Epigastric pain rule out GERD: Consult for Dr. Woody le, pantoprazole 40 mg IV b.i.d. Gallbladder ultrasound shows gallstones no cholecystitis and fatty liver Date of Service: May 14, 2024 Billing Provider: JOAQUIN RODRIGUEZ MD Common Visit Codes: [id number] DISCH DAY >30min JOAQUIN RODRIGUEZ MD May 14, 2024 10:17
--- NOTE | 2024-05-14 11:33 | DVHPN2 ---
Progress Note Date Seen: May 14, 2024 Resident Creating Document: ESTEBAN JEFFERS RESIDENT Medical Necessity Reason Pt with a Central, PICC or Fol: No Subjective Review of Systems Patient notes epigastric pain which is intermittent in nature, patient notes pain is worsened with activity and improved with sitting and lying down. Denies any changes in the character in onset of pain with eating. Denies any sour taste in mouth in the morning. Patient describes the pain as a stabbing type pain associated with palpitations and diaphoresis. No tenderness to palpation in the midepigastric area noted. Patient does note that she take ibuprofen 400 mg once daily since October. She has been evaluated by Cardiology, patient completed Cardiolite stress test which was negative for ischemia Objective vital signs Vital Sign Date Time Temp Pulse Resp B/P (MAP) Pulse Ox O2 Delivery O2 Flow Rate FiO2 05/14/24 10:34 62 162/84 05/14/24 08:00 16 98 Room Air* 0 21 05/14/24 05:00 97.6 97.6 Total Intake and Output 05/13/24 05/13/24 05/14/24 15:00 23:00 07:00 Intake Total 600 ml Balance 600 ml medications Current Medications Medications Dose Ordered Sig/Mona Route Start Time Stop Time Status Last Admin Dose Admin Aspirin 81 mg DAILY PO 05/10/24 10:00 05/14/24 09:33 81 MG Atorvastatin Calcium 40 mg HS PO 05/10/24 22:00 05/13/24 22:21 40 MG Acetaminophen 650 mg Q6HP PRN PO 05/10/24 07:45 05/14/24 09:33 650 MG Ondansetron HCl 4 mg Q4HP PRN IV 05/10/24 07:45 Nitroglycerin 0.4 mg Q5MINP PRN SL 05/10/24 07:45 Morphine Sulfate 2 mg Q30M PRN IV 05/10/24 07:45 Diagnostic Test (Pha) 1 strip ACHS 05/10/24 11:30 05/14/24 06:40 1 STRIP Insulin Human Regular ACHS SC 05/10/24 11:30 05/13/24 22:21 4 UNITS Dextrose 50 ml UD PRN IV 05/10/24 07:45 Ibuprofen 400 mg Q8HP PRN PO 05/11/24 11:15 05/13/24 20:07 400 MG Pantoprazole Sodium 40 mg BID@0600,1700 PRN PO 05/11/24 16:30 Patient Own Medication 1 HS PO 05/12/24 22:00 05/13/24 22:26 1 Metoprolol Tartrate 50 mg BID PO 05/12/24 22:00 05/14/24 09:34 50 MG Hydralazine HCl 10 mg Q6HP PRN IV 05/12/24 11:00 Examination General Appearance: Cooperative. Well developed. Well nourished. NAD Head Exam: Normal inspection Neck Exam: Normal inspection. Non-tender. Normal alignment Pulmonary/Respiratory: Chest non-tender. Clear bilateral breath sounds Cardiovascular/Chest: Regular rate and rhythm. No murmurs. No JVD. Peripheral Pulses: 2+ Radial (R). 2+ Radial (L). 2+ Pedal (R). 2+ Pedal (L) Abdominal Exam: Normal bowel sounds. Soft. Nontender. No hepatospenomegaly. No masses Ankle Exam: Negative ankle edema Lower extremities: Negative lower extremity edema Neuro/Mental Status: A&O x4. Coherent Thoughts/Psych: Normal thought pattern. Appropriate mood and affect. Good judgement and insight Appearance: In no acute distress Skin Exam: Normal inspection. Normal color. Warm. Dry laboratory and microbiology Laboratory Tests 05/11/24 05:11 05/10/24 05:31 Test 05/11/24 05:11 Range/Units Serum Glucose 133 H 74-106 mg/dL Labs and/or images reviewed: Labs reviewed by me, Image(s) reviewed by me Problem List/Assessment/Plan Problem List/Assessment/Plan Midepigastric pain Elevated D-dimer Plan Continue Protonix 40 mg b.i.d. Continue supportive care Completed stress test today, negative for ischemia Patient does not appear to have any upper GI symptoms However if other workup is negative consider elective EGD once medically stabilized Gallbladder ultrasound: Fatty infiltration of the liver. Cholelithiasis. No convincing evidence of acute cholecystitis. Plan discussed with: Patient, Other (RN) ESTEBAN JEFFERS RESIDENT May 14, 2024 11:33
== END 2024-05-14 12:00 | disposition home or self-care (01) | DRG 243 ==
LOC: EDBD 04:45 → ER 04:45 → OVERFLOW 07:32 → TELE-CENTR 22:04
PROVIDERS: ADMIT Family Medicine; ATTEND Family Medicine
DX: K21.9 Gastro-esophageal reflux disease without esophagitis (principal); I11.9 Hypertensive heart disease without heart failure; K22.10 Ulcer of esophagus without bleeding; E11.9 Type 2 diabetes mellitus without complications; R07.89 Other chest pain; K22.4 Dyskinesia of esophagus; Z68.41 Body mass index [BMI] 40.0-44.9, adult; E78.5 Hyperlipidemia, unspecified; E66.9 Obesity, unspecified; K80.20 Calculus of gallbladder without cholecystitis without obstruction; Z82.0 Family history of epilepsy and other diseases of the nervous system; Z92.3 Personal history of irradiation; Z90.710 Acquired absence of both cervix and uterus; Z85.3 Personal history of malignant neoplasm of breast; Z83.3 Family history of diabetes mellitus; Z82.49 Family history of ischemic heart disease and other diseases of the circulatory system; Z82.3 Family history of stroke; Z92.21 Personal history of antineoplastic chemotherapy; Z88.8 Allergy status to other drugs, medicaments and biological substances; Z98.891 History of uterine scar from previous surgery; Z79.899 Other long term (current) drug therapy; Z90.49 Acquired absence of other specified parts of digestive tract
CPT/HCPCS: 36415; 71045; 71275; 76705; 78452; 80053; 80061; 80307; 82962; 83036; 83735; 83880; 84443; 84484; 85025; 85379; 85610; 85730; 93005; 93017; 93306; 99291; G0378; J1815

== ENCOUNTER 2024-06-06 23:15 | Emergency (ER) | payer MEDICAID ==
[~2024-06-06] VITALS: Ht 144.8 cm; Wt 83.6 kg
[~2024-06-06 23:15] MED LIST: AMOX500C2 PO; ANAS1TAB7 PO; ASPI1TAB20 PO; ATOR20TA50 PO; FENO160T PO; MAGN241.6 PO; METO-158 PO; OMEG-86 PO; PANT40T PO
[2024-06-06 23:19] VITALS: TEMP 97.9
--- NOTE | 2024-06-06 23:38 | ED.PDOC ---
History of Present Illness HPI Comments 64 y/o overweight F, with a history of breast cancer s/p lumpectomy, DM II, cholelithiasis, , and hysterectomy, presents with c/o chest pain, shortness of breath, and nausea, today. Patient endorses on sudden and unprovoked onset of symptoms, this evening, at around 1930. She describes pain as "sharp" and "tight" in quality, localized to her sternum, and nonradiating. Patient admits to similar pain with accompanying ED visit on May 10, 2024 and being told on "gallstones" being the cause of her pain and needing a cholecystectomy then. Patient reports on still pending on receiving said surgery at the moment. She denies any vomiting, palpitations, fever, chills, abdominal pain, or other associated symptoms at this time. Chief Complaint: Chest Pain Time Seen by MD: 23:25 Reviewed Notes: Nurses Notes, Medications, Allergies Allergies: Coded Allergies: Mirabegron (Verified Allergy, Unknown, 05/10/24) Home Meds Active Scripts Famotidine (PEPCID TABLET) 20 Mg Tb, 1 TAB PO BID PRN, #60 TAB 5 Refills Prov:JUAN ANDINO MD 06/07/24 Dicyclomine Hcl (BENTYL CAPSULE) 10 Mg Cp, 1 CAP PO Q6HPRN for 30 Days, #100 CAP 3 Refills Prov:JUAN ANDINO MD 06/07/24 Pantoprazole Sodium Sesquihydr (Pantoprazole Sodium) 40 Mg Tab, 40 MG PO BID, #60 TAB Prov:JOAQUIN RODRIGUEZ MD 05/14/24 Aspirin (Aspir-81) 81 Mg Tab, 81 MG PO DAILY, #30 TAB Prov:JOAQUIN RODRIGUEZ MD 05/14/24 Metoprolol Tartrate (Metoprolol Tartrate) 50 Mg Tab, 50 MG PO BID, #60 TAB Prov:JOAQUIN RODRIGUEZ MD 05/14/24 Reported Medications Fenofibrate (Fenofibrate) 160 Mg Tab, 1 TAB PO DAILY 05/10/24 Sobvs-9-Yntc Ethyl Esters (Xybjq-2-Ygcl Ethyl Esters) 1 Gm Cap, 1 CAP PO BID 05/10/24 Amoxicillin Trihydrate (Amoxicillin) 500 Mg Cap, 1 CAP PO BID day 7 of 05/10/24 Magnesium Oxide (mg Supplement (Magnesium-Oxide) 400 Mg Tab, 1 TAB PO DAILY 05/10/24 Atorvastatin Calcium (ATORVASTATIN CALCIUM) 20 Mg Tab, 1 TAB PO DAILY 05/10/24 Anastrozole (Anastrozole) 1 Mg Tab, 1 TAB PO DAILY 05/10/24 Past Medical History PAST MEDICAL HISTORY: Cancer (breast cancer s/p lumpectomy), DM (type II), Gallstones Past Medical History (Other): Surgical History: , Hysterectomy Surgical History (Other): breast cancer s/p lumpectomy 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 Family History Family History: Reviewed,noncontributory to illness Social History Smoker: Non-Smoker Alcohol: Denies ETOH Use Drugs: Denies Drug Use Lives In: Home All Other Systems: Reviewed and Negative (Comprehensive systems review obtained and negative except for what is stated in the HPI.) Physical Exam General Appearance: Mild Distress, Normal HEENT: Normal ENT Inspection, Pharynx Normal, TMs Normal Neck: Full Range of Motion, Non-Tender, Normal, Normal Inspection Respiratory: Chest Non-Tender, Lungs Clear, No Accessory Muscle Use, No Respiratory Distress, Normal Breath Sounds Cardiovascular: No Edema, No JVD, No Murmur, No Gallop, Normal Peripheral Pulses, Regular Rate/Rhythm Breast Exam: Deferred Gastrointestinal: No Organomegaly, Non Tender, No Pulsatile Mass, Normal Bowel Sounds, Soft Genitalia: Deferred Pelvic: Deferred Rectal: Deferred Extremities: No calf tenderness, Normal capillary refill, Normal inspection, Normal range of motion, Non-tender, No pedal edema Musculoskeletal : Apperance: Normal 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 Was a procedure done?: No EKG EKG : Pulse Rate (adult): 63 [place]: Normal Cardiac Rhythm: NSR Block: None Hypertrophy: None ST: Normal Differential Dx Considerations may include: VT, PE, ACS, PNA, URI, viral syndrome, musculoskeletal pain, angina, costochondritis, pericarditis, cholelithiasis, cholecystitis, among others X-Ray, Labs, Meds, VS Vital Signs Date Time Temp Pulse Resp B/P (MAP) Pulse Ox O2 Delivery O2 Flow Rate FiO2 06/07/24 00:19 61 06/06/24 23:38 63 06/06/24 23:27 63 06/06/24 23:19 97.9 63 18 148/75 (99) 98 97.9 Lab Test 06/07/24 00:15 06/06/24 23:33 06/06/24 23:31 06/06/24 23:29 Range/Units Troponin I High Sensitivity 13 13 </=34 ng/L White Blood Count 4.8 4.4-10.8 10^3/uL Red Blood Count 3.85 L 4.0-5.20 10^6/uL Hemoglobin 11.9 L 12.2-16.2 g/dL Hematocrit 35.5 L 36.0-46.0 % Mean Corpuscular Volume 92.1 80.0-100.0 fL Mean Corpuscular Hemoglobin 30.9 28.0-32.0 pg Mean Corpuscular Hemoglobin Concent 33.5 32.0-36.0 g/dL Red Cell Distribution Width 14.7 H 11.8-14.3 % Platelet Count 163 140-450 10^3/uL Mean Platelet Volume 11.7 H 6.9-10.8 fL Neutrophils (%) (Auto) 54.3 37.0-80.0 % Lymphocytes (%) (Auto) 30.0 10.0-50.0 % Monocytes (%) (Auto) 10.5 0.0-12.0 % Eosinophils (%) (Auto) 3.4 0.0-7.0 % Basophils (%) (Auto) 1.8 0.0-2.0 % Neutrophils # (Auto) 2.6 1.6-8.6 10 ^3/uL Lymphocytes # (Auto) 1.5 0.4-5.4 10 ^3/uL Monocytes # (Auto) 0.5 0-1.3 10 ^3/uL Eosinophils # (Auto) 0.2 0-0.8 10 ^3/uL Basophils # (Auto) 0.1 0-0.2 10 ^3/uL Nucleated Red Blood Cells 0.0 % Sodium Level 141 136-145 mmol/L Potassium Level 4.2 3.5-5.1 mmol/L Chloride Level 110 H 98-107 mmol/L Carbon Dioxide Level 24 20-31 mmol/L Anion Gap 7 5-15 Blood Urea Nitrogen 13 9-23 mg/dL Creatinine 0.78 0.550-1.02 mg/dL Glomerular Filtration Rate Calc 86 >90 mL/min BUN/Creatinine Ratio 16.7 10.0-20.0 Serum Glucose 156 H 74-106 mg/dL Calcium Level 9.9 8.7-10.4 mg/dL Total Bilirubin 0.4 0.2-1.0 mg/dL Aspartate Amino Transferase (AST) 37 13-40 U/L Alanine Aminotransferase (ALT) 54 H 7-40 U/L Alkaline Phosphatase 134 H 46-116 U/L Total Protein 7.5 5.7-8.2 g/dL Albumin 4.6 3.2-4.8 g/dL Lipase 55 H 12-53 U/L Prothrombin Time 10.5 9.3-11.8 sec Prothrombin Time INR 0.99 0.9-1.15 Activated Partial Thromboplast Time 24.4 L 24.5-34.5 SEC Time of 1ST Reevaluation: 23:55 Reevaluation 1ST: Unchanged Patient Education/Counseling: Diagnosis, Treatment Family Education/Counseling: No Family Present Additional Information Previous medical encounters reviewed: May 10, 2024 encounter for chest pain The following tests were ordered, and results were reviewed by me: CXR, gallbladder US, EKG, PTPTT, lipase, CMP, CBC, troponin Additional Information was gathered from interviewing the following independent historians: n/a I reviewed and agreed with the following test results read by other providers: CXR, gallbladder US I discussed treatment and results with medical personnel and: Patient Departure 1 Departure Time of Disposition: 01:52 Impression: Primary Impression: Atypical chest pain Additional Impression: Cholelithiasis Disposition: HOME / SELF CARE / HOMELESS Condition: Stable e-Prescriptions Famotidine (PEPCID TABLET) 20 Mg Tb 1 TAB PO BID PRN, #60 TAB 5 Refills Prov: JUAN ANDINO MD 06/07/24 Dicyclomine Hcl (BENTYL CAPSULE) 10 Mg Cp 1 CAP PO Q6HPRN for 30 Days, #100 CAP 3 Refills Prov: JUAN ANDINO MD 06/07/24 Discharged With: Self Critical Care Note Critical Care Time?: No Stability Stability form required: No Heart Score Heart Score: Heart Score Response (Comments) Value History Slightly Suspicious 0 EKG Normal 0 Age 45-64 1 Risk Factors 1 or 2 risk factors 1 Troponin Normal limit 0 Total 2 I personally scribed for JUAN ANDINO MD ([email or web address]) on 06/06/24 at 23:38. Electronically submitted by Gerard Hankins ([email or web address]). JUAN ANDINO MD Jun 06, 2024 23:38
[2024-06-06 23:57] LABS: Basophils # (auto) 0.1 10 ^3/uL (0-0.2); Basophils % (auto) 1.8 % (0.0-2.0); Eosinophils # (auto) 0.2 10 ^3/uL (0-0.8); Eosinophils % (auto) 3.4 % (0.0-7.0); Hematocrit 35.5 % (36.0-46.0); Hemoglobin 11.9 g/dL (12.2-16.2); Lymphocytes # (auto) 1.5 10 ^3/uL (0.4-5.4); Mean Corpuscular Hemoglobin 30.9 pg (28.0-32.0); Mean Corpuscular Hgb Conc. 33.5 g/dL (32.0-36.0); Mean Corpuscular Volume 92.1 fL (80.0-100.0); Monocytes # (auto) 0.5 10 ^3/uL (0-1.3); Monocytes % (auto) 10.5 % (0.0-12.0); Neutrophils # (auto) 2.6 10 ^3/uL (1.6-8.6); Neutrophils % (auto) 54.3 % (37.0-80.0); Platelet Count (auto) 163 10^3/uL (140-450); Red Blood Cells 3.85 10^6/uL (4.0-5.20); Red Cell Distribution Width 14.7 % (11.8-14.3); White Blood Cell 4.8 10^3/uL (4.4-10.8)
[2024-06-07 00:04] LABS: Albumin 4.6 g/dL (3.2-4.8); Anion Gap 7 (5-15); Aspartate Aminotransferase 37 U/L (13-40); BUN/Creatinine Ratio 16.7 (10.0-20.0); Blood Urea Nitrogen 13 mg/dL (9-23); Calcium 9.9 mg/dL (8.7-10.4); Carbon Dioxide 24 mmol/L (20-31); Potassium 4.2 mmol/L (3.5-5.1); Sodium 141 mmol/L (136-145); Total Protein 7.5 g/dL (5.7-8.2)
[2024-06-07 00:05] LABS: Alanine Aminotransferase 54 U/L (7-40); Alkaline Phosphatase 134 U/L (46-116); Bilirubin, Total 0.4 mg/dL (0.2-1.0); Chloride 110 mmol/L (98-107); Glucose 156 mg/dL (74-106); Lipase 55 U/L (12-53)
[2024-06-07 00:10] LABS: INR 0.99 (0.9-1.15); Partial Thromboplastin Time 24.4 SEC (24.5-34.5); Prothrombin Time 10.5 sec (9.3-11.8)
--- NOTE | 2024-06-07 00:39 | DVH ---
CHEST RADIOGRAPH Indication: chest pain Technique: Single frontal view of the chest was obtained Comparison: XY CHEST XRAY 1 VIEW on DOS: 05/10/24 FINDINGS: Lines and Tubes: None Lungs: Clear Pleura: No effusion. No pneumothorax. Cardiomediastinal contours: Unremarkable Bones: Unremarkable IMPRESSION: Clear lungs.
--- NOTE | 2024-06-07 00:50 | DVH ---
INDICATION: epigastric pain / RUQ pain TECHNIQUE: Multiple real-time sonographic images were obtained of the right upper quadrant. COMPARISON: US GALLBLADDER on DOS: 05/13/24 FINDINGS: The liver demonstrates diffusely increased echotexture without focal mass lesions. The live r is enlarged, measuring 18.0 cm. Normal hepatopetal portal flow. No evidence of pleural effusion or abdominal ascites. There is no intrahepatic or extrahepatic ductal dilatation. The common duct is not adequately visuali zed. The gallbladder contains multiple mobile stones. The gallbladder wall measures 0.3 cm and is within n ormal limits. The right kidney measures 10.9 cm. The right kidney is normal in contour, size, and shape. The echoge nicity is normal. There is no hydronephrosis. The pancreas is not well visualized due to overlying bowel gas. IMPRESSION: 1. Uncomplicated cholelithiasis. 2. Hepatomegaly and hepatic steatosis.
[2024-06-07] MEDS ORDERED: FAMO20TA10 PO (01:51)
[2024-06-07] MEDS ORDERED: DICY10CA PO (01:51)
[2024-06-07 01:52] VITALS: PULSE 62; RESP 18; O2SAT 98
[2024-06-07 02:03] VITALS: BP 148/75; PULSE 98; RESP 18
[2024-06-07] MEDS: MORPHINE SULFATE 4 MG/ML SYR/VIAL IV ONE (02:03)
[2024-06-07] MEDS: ONDANSETRON HCL 4 MG/2 ML VIAL IV ONE (02:03)
--- NOTE | 2024-06-07 10:10 | ECG ---
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
--- NOTE | 2024-06-10 06:56 | ECG ---
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
== END 2024-06-07 02:25 | disposition home or self-care (01) ==
LOC: ER 23:15
DX: R07.89 Other chest pain (principal); K80.20 Calculus of gallbladder without cholecystitis without obstruction; E11.9 Type 2 diabetes mellitus without complications; Z90.710 Acquired absence of both cervix and uterus; Z79.899 Other long term (current) drug therapy; Z79.82 Long term (current) use of aspirin
CPT/HCPCS: 36415; 71045; 76705; 80053; 83690; 84484; 85025; 85610; 85730; 93005; 96374; 96375; 99285; J2270; J2405